=== PATIENT | male | born 1990 | race Caucasian/White ===

== ENCOUNTER → 2016-10-02 | Outpatient (CLI) | payer OTHER ==
[~2016-10-02] MED LIST: CEPH-459 PO; IOHEXOL 350 MG/ML 10 ML VIAL (for RAD DIAG) IVCONTRAST ONE; PERC5TAB12 PO
--- NOTE | 2016-10-02 13:52 | RADRPT ---
EXAM DATE/TIME: 10/02/2016 13:35 [facility] COMPARISON: No previous studies available for comparison. INDICATIONS : Evaluate for communicable disease, pneumonia, pnuemothorax. Testicular Mass MEDICAL HISTORY : None. SURGICAL HISTORY : None. ENCOUNTER: Initial ACUITY: 1 day PAIN SCORE: 0/10 LOCATION: Bilateral chest FINDINGS: PA and lateral views of the chest demonstrate the lungs to be symmetrically aerated without evidence of mass, infiltrate or effusion. Minimal blunting of the costal phrenic angles. The cardiomediastina l contours are unremarkable. Osseous structures are intact. CONCLUSION: Minimal blunting of the costophrenic angles could be some pleural thickening or tiny pleural effusion s otherwise unremarkable chest. Jovanny Edwards MD on October 02, 2016 at 13:49 Board Certified Radiologist. This report was verified electronically.
--- NOTE | 2016-10-02 15:16 | RADRPT ---
EXAM DATE/TIME: 10/02/2016 14:31 [facility] COMPARISON: No previous studies available for comparison. INDICATIONS : Evaluate for mass; testicular swelling. IV CONTRAST: 100 cc Omnipaque 350 (iohexol) IV ORAL CONTRAST: No oral contrast ingested. RADIATION DOSE: 4.71 CTDIvol (mGy) MEDICAL HISTORY : None SURGICAL HISTORY : None. ENCOUNTER: Initial ACUITY: 1 day PAIN SCALE: 3/10 LOCATION: low abdomen. TECHNIQUE: Volumetric scanning of the abdomen and pelvis was performed. Using automated exposure control and ad justment of the mA and/or kV according to patient size, radiation dose was kept as low as reasonably achievable to obtain optimal diagnostic quality images. DICOM format image data is available electro nically for review and comparison. FINDINGS: LOWER LUNGS: The visualized lower lungs are clear. LIVER: Homogeneous density without lesion. There is no dilation of the biliary tree. No calcified gallston es. SPLEEN: Normal size without lesion. PANCREAS: Within normal limits. KIDNEYS: Normal in size and shape. There is no mass, stone or hydronephrosis. ADRENAL GLANDS: Within normal limits. VASCULAR: There is no aortic aneurysm. BOWEL/MESENTERY: The stomach, small bowel, and colon demonstrate no acute abnormality. There is no free intraperitone al air or fluid. ABDOMINAL WALL: Within normal limits. RETROPERITONEUM: There is no lymphadenopathy. BLADDER: No wall thickening or mass. REPRODUCTIVE: Left testicle slightly larger.. INGUINAL: There is no lymphadenopathy or hernia. MUSCULOSKELETAL: Within normal limits for patient age. CONCLUSION: 1. Unremarkable CT of abdomen/pelvis. 2. Left testicle slightly larger. Testicular sonogram may be warranted. Jovanny Edwards MD on October 02, 2016 at 15:10 Board Certified Radiologist. This report was verified electronically.
== END ==
LOC: HRAD 13:01
PROVIDERS: ATTEND Urology
DX: N50.9 Disorder of male genital organs, unspecified (principal)
CPT/HCPCS: 71020; 74177; Q9967

== ENCOUNTER 2016-10-09 12:09 | Day surgery (SDC) | payer OTHER ==
[~2016-10-09] VITALS: Ht 168.9 cm; Wt 73.4 kg
[~2016-10-09 12:09] MED LIST changes: -CEPH-459 PO; -IOHEXOL 350 MG/ML 10 ML VIAL (for RAD DIAG) IVCONTRAST ONE; +NEOSTIGMINE 3 MG/3 ML SYR IV ONE; +ONDANSETRON HCL 4 MG/2 ML VIAL IV PUSH ONE; -PERC5TAB12 PO; +PROPOFOL 200 MG/20 ML AMP IV ONE
[2016-10-09] MEDS ORDERED: ceFAZolin 1,000 MG/NS 100 ML IV SCH ×2 (12:45)
[2016-10-09 13:31] LABS: AUTOMATED NEUTROPHIL # 2.7 TH/MM3 (1.8-7.7); BASOPHIL # 0.1 TH/MM3 (0-0.2); BASOPHIL % 1.3 % (0.0-2.0); EOSINOPHIL # 0.3 TH/MM3 (0-0.4); EOSINOPHIL % 4.5 % (0.0-4.0); HEMATOCRIT 43.2 % (39.0-51.0); HEMO FLAGS DIFF FINAL; LYMPH % 38.3 % (9.0-44.0); LYMPHOCYTE # 2.3 TH/MM3 (1.0-4.8); MEAN CORPUSCULAR HEMOGLOBIN 31.2 PG (27.0-34.0); MEAN CORPUSCULAR HGB CONC 34.6 % (32.0-36.0); MONO % 10.9 % (0.0-8.0); PLATELET COUNT 229 TH/MM3 (150-450); RED CELL DISTRIBUTION WIDTH 12.4 % (11.6-17.2)
[2016-10-09] MEDS ORDERED: SODIUM CHLORID 0.9% 500 ML IV PRN (14:00)
[2016-10-09] MEDS ORDERED: CHLORHEXIDINE GLUCONATE 2 % 1 PACK (2 CLOTHS) TOPICAL PRN (14:00)
[2016-10-09] MEDS ORDERED: INSULIN HUMAN REGULAR 1,000 UNITS/10 ML VIAL SQ PRN (14:00)
[2016-10-09] MEDS ORDERED: LACTATED RINGER'S 1000 ML IV PRN (14:00)
[2016-10-09] MEDS ORDERED: METOPROLOL TARTRATE 25 MG TAB PO PRN (14:00)
[2016-10-09] MEDS ORDERED: POVIDONE IODINE 5% (ANTISEPSIS KIT) 4 APPLICATIONS EACH NARE PRN (14:00)
[2016-10-09] MEDS ORDERED: MIDAZOLAM HCL 2 MG/2 ML VIAL ONE (19:34)
[2016-10-09] MEDS ORDERED: ceFAZolin INJ 1,000 MG VIAL IV ONE (20:02)
[2016-10-09] MEDS ORDERED: ACETAMINOPHEN 1000 MG/100 ML 100 ML IV ONE (20:12)
--- NOTE | 2016-10-09 21:05 | PD.OP ---
Operative Report Date of Surgery: Oct 09, 2016 Preoperative Diagnosis: (1) Testicular mass Postoperative Diagnosis: (1) Testicular mass Procedure: Right radical orchiectomy Anesthesia: General Surgeon: Sharad Mccormick Shift Supervisor Melting(s): None Operation and Findings: Indication for procedure: Case of a pleasant 26-year-old male with a 1.6 cm right testicular mass who presents today to undergo a right radical orchiectomy. Operative procedure in detail: Patient was brought to the operating suite and placed supine on the OR table. Present placed under general endotracheal anesthesia. He was then prepped and draped in normal sterile fashion. After appropriate timeout was undertaken I proceeded with making a curvilinear right inguinal incision just superior to the right external ring. Incision length was approximately 4 cm. Using the Bovie cautery I transected down to the external oblique fascia. The external ring was identified and a right angle clamp was inserted into the ring with gentle upward traction. A #15 blade was then utilized to carefully transect the external oblique fascia starting inferomedially and working superior laterally for a distance of approximately 4 cm. Care was taken to avoid injury to the ilioinguinal nerve. The spermatic cord was next mobilized and a 3/8 David drain placed around the cord to facilitate dissection. Digital dissection was continued inferiorly down into the right hemiscrotum and the right testicle was mobilized. The right testicle was pushed up and out of the right inguinal wound and the gubernacular attachments were transected with the Bovie cautery. Next the spermatic cord was further mobilized to the level of the internal ring and subsequently divided ligated between Rosemary clamps. 0 silk suture ties were utilized and long tails were left on the remaining spermatic cord stump. The specimen was next handed off and sent to pathology. Careful special the wound was made to check for active bleeding and none was noted. The external oblique fascia was next reapproximated utilizing a running 2-0 Vicryl suture starting superior laterally and working inferior medially to reconstruct the external ring. The overlying fascia was then reapproximated with interrupted 3-0 chromic suture and the skin edges reapproximated in subcuticular fashion utilizing a 4-0 undyed Vicryl suture. Mastisol and Steri-Strips were applied and the wound covered with sterile gauze. The patient tolerated the procedure without complications and was transferred to the PACU in satisfactory condition. Sharad Mccormick MD Oct 09, 2016 21:05
[2016-10-09] MEDS ORDERED: CEPH-459 PO (21:06)
[2016-10-09] MEDS ORDERED: PERC5TAB12 PO (21:06)
[2016-10-09] MEDS ORDERED: DO NOT ADM ANY ANTICOAGULANT DRUGS PRN (21:10)
[2016-10-09] MEDS ORDERED: *MEPERIDINE 25 MG INJ VIAL PERIprocedural Use ONLY ONE (21:17)
[2016-10-09] MEDS ORDERED: MORPHINE SULFATE 4 MG/ML INJ ONE (21:20)
[2016-10-09] MEDS ORDERED: oxyCODONE/ACETAMINOPHEN 5 MG/325 MG TAB PO PRN (22:00)
[2016-10-09] MEDS ORDERED: HYDROmorphone HCL PF 1 MG/ML VIAL IV PUSH ONE (22:00)
[2016-10-09] MEDS ORDERED: ONDANSETRON HCL 4 MG/2 ML VIAL IV PUSH PRN (22:00)
[2016-10-09 22:15] VITALS: BP 128/73; PULSE 63; RESP 15; O2SAT 100
== END 2016-10-09 22:21 | disposition home or self-care (01) ==
LOC: HSDC 12:09
PROVIDERS: ATTEND Urology
DX: C62.11 Malignant neoplasm of descended right testis (principal); Z01.818 Encounter for other preprocedural examination
CPT/HCPCS: 00926; 54530; 85025; 88309; J0131; J0690; J2175; J2250; J2270; J2405; J2710; J3010

== ENCOUNTER → 2017-04-24 | Outpatient (CLI) | payer OTHER ==
[~2017-04-24] MED LIST changes: +IOHEXOL 350 MG/ML 10 ML VIAL (for RAD DIAG) IVCONTRAST ONE; -NEOSTIGMINE 3 MG/3 ML SYR IV ONE; -ONDANSETRON HCL 4 MG/2 ML VIAL IV PUSH ONE; -PROPOFOL 200 MG/20 ML AMP IV ONE
--- NOTE | 2017-04-24 13:58 | RADRPT ---
EXAM DATE/TIME: 04/24/2017 13:34 [facility] COMPARISON: CHEST PA & LAT, October 02, 2016, 13:35. INDICATIONS : Malignant neoplasm of right testis. MEDICAL HISTORY : Malignant neoplasm of right testis. SURGICAL HISTORY : None. ENCOUNTER: Initial ACUITY: 1 day PAIN SCORE: 0/10 LOCATION: chest FINDINGS: PA and lateral views of the chest demonstrate the lungs to be symmetrically aerated without evidence of mass, infiltrate or effusion. The cardiomediastinal contours are unremarkable. Osseous structure s are intact. CONCLUSION: 1. No acute cardiopulmonary findings identified. 2. Stable examination compared to previous dated 10/02/16. Raymundo Ivy MD on April 24, 2017 at 13:54 Board Certified Radiologist. This report was verified electronically.
--- NOTE | 2017-04-24 14:48 | RADRPT ---
EXAM DATE/TIME: 04/24/2017 13:26 [facility] COMPARISON: None. INDICATIONS : <<Follow up for metastates. >> IV CONTRAST: <<95>> cc Omnipaque 350 (iohexol) IV ORAL CONTRAST: No oral contrast ingested. RADIATION DOSE: <<5.68>> CTDIvol (mGy) MEDICAL HISTORY : Carcinoma, testicular. SURGICAL HISTORY : Radical orchiectomy. ENCOUNTER: Initial ACUITY: 1 day PAIN SCALE: 0/10 LOCATION: Abdomen. TECHNIQUE: Volumetric scanning of the abdomen and pelvis was performed. Using automated exposure control and ad justment of the mA and/or kV according to patient size, radiation dose was kept as low as reasonably achievable to obtain optimal diagnostic quality images. DICOM format image data is available electro nically for review and comparison. FINDINGS: Lung bases are clear. No acute findings in the liver, spleen, adrenals, kidneys or pancreas. No calci fied gallstones ability ductal dilatation. There is no free fluid. No bowel obstruction. No adenopathy. Mild constipation. CONCLUSION: No acute findings. Mild constipation. Ziyad Tinajero MD on April 24, 2017 at 14:40 Board Certified Radiologist. This report was verified electronically.
== END ==
LOC: HRAD 12:24
PROVIDERS: ATTEND Urology
DX: C62.11 Malignant neoplasm of descended right testis (principal)
CPT/HCPCS: 71046; 74177; Q9967